=== PATIENT | female | born 1945 | race Hispanic/Latino ===

== ENCOUNTER 2017-12-06 08:51 | Outpatient (CLI) | payer MEDICARE ==
--- NOTE | 2017-12-06 11:04 | Ultrasound Report ---
RIGHT BREAST ULTRASOUND: 12/06/17 08:51:00 CLINICAL: Asymmetry and architectural distortion on mammogram. COMPARISON: 11/23/17 and 11/10/17 FINDINGS: Ultrasound of the right breast(including all four quadrants and the retroareolar area) was performed and demonstrated normal fibroglandular structures in normal fatty structures. No mass, cyst or shadowing. IMPRESSION: Negative right breast ultrasound. Probably benign mammographic findings. Recommend six month followup right mammogram. BI-RADS 3 - - Probably Benign
== END 2017-12-06 08:52 | disposition home or self-care (01) ==
LOC: SPVWC 08:51
PROVIDERS: ATTEND Surgery
DX: R92.8 Other abnormal and inconclusive findings on diagnostic imaging of breast (principal)